=== PATIENT | female | born 1970 | race Hispanic/Latino ===

== ENCOUNTER → 2017-06-26 | Outpatient (CLI) | payer OTHER | LOC: MAMMO 10:21 | PROVIDERS: ATTEND Internal Medicine | DX: Z12.31 Encounter for screening mammogram for malignant neoplasm of breast (principal) | CPT/HCPCS: 77067 ==

== ENCOUNTER → 2018-04-07 | Outpatient (CLI) | payer OTHER ==
--- NOTE | 2018-04-07 12:24 | Diagnostic Imaging Report ---
PROCEDURE: US THYROID COMPARISON: None. INDICATIONS:NON TOXIC GOITER TECHNIQUE: Transverse and longitudinal pacheco-scale sonographic images of the thyroid were obtained and supplemented with color doppler. FINDINGS: Right thyroid lobe: 5.2 x 1.2 x 1.7 cm. Uniform parenchymal echotexture. 2 adjacent solid ovoid, hypoechoic nodules, wider than tall, well marginated, no microcalcifications are identified in the lower pole measuring 0.6 x 0.4 x 0.5 cm and 0.6 x 0.3 x 0.5 cm. Both TR 4. Left thyroid lobe: 5.1 x 0.9 x 1.7 cm. Uniform parenchymal echotexture. Isthmus: 0.2 cm. CONCLUSION: Tandem subcentimeter right thyroid nodules, each TI-RADS 4. Per ACR guidelines, no imaging followup is recommended due to subcentimeter size. Dictated by: Twan Rodriguez M.D. on 04/07/2018 at 12:34 Electronically approved by: Twan Rodriguez M.D. on 04/07/2018 at 12:34
== END ==
LOC: US 10:08
PROVIDERS: ATTEND Internal Medicine
DX: E04.9 Nontoxic goiter, unspecified (principal)
CPT/HCPCS: 76536

== ENCOUNTER 2023-11-10 07:58 | Outpatient (RCR) | payer BC | END 2023-11-15 | LOC: OT 07:58 | PROVIDERS: ATTEND Physician Assistant | DX: M75.82 Other shoulder lesions, left shoulder (principal) ==

== ENCOUNTER 2023-12-07 08:00 | Outpatient (RCR) | payer BC | END 2023-12-16 | LOC: OT 08:00 | PROVIDERS: ATTEND Physician Assistant | DX: M75.82 Other shoulder lesions, left shoulder (principal) ==

== ENCOUNTER 2024-01-15 07:00 | Outpatient (RCR) | payer BC, OTHER | END 2024-01-16 | LOC: PT 07:00 | PROVIDERS: ATTEND Physician Assistant | DX: M75.82 Other shoulder lesions, left shoulder (principal) ==

== ENCOUNTER → 2024-02-15 | Outpatient (RCR) | payer OTHER | LOC: PT 01-22 06:28 | PROVIDERS: ATTEND Physician Assistant | DX: M75.82 Other shoulder lesions, left shoulder (principal) ==

== ENCOUNTER 2024-03-03 07:00 | Outpatient (RCR) | payer OTHER | END 2024-03-17 | LOC: PT 07:00 | PROVIDERS: ATTEND Physician Assistant | DX: M75.82 Other shoulder lesions, left shoulder (principal) ==

== ENCOUNTER 2024-03-22 06:09 | Outpatient (RCR) | payer OTHER | END 2024-04-16 | LOC: PT 06:09 | PROVIDERS: ATTEND Physician Assistant | DX: M75.82 Other shoulder lesions, left shoulder (principal); M77.8 Other enthesopathies, not elsewhere classified ==